=== PATIENT | male | born 1965 | race Caucasian/White ===

== ENCOUNTER 2018-05-18 21:57 | Outpatient (REF) | payer OTHER, SELFPAY ==
[2018-05-18 22:38] LABS: Cholesterol 205 mg/dL (50-200); HDL Cholesterol 40 mg/dL (40-60); LDL CHOLESTEROL 153 mg/dL (<100); Triglyceride 79 mg/dL (30-150)
[2018-05-18 22:39] LABS: Hemoglobin A1C 5.9 % (4.5-6.2)
== END 2018-05-18 22:17 ==
LOC: NCHCN 21:57
PROVIDERS: PCP Internal Medicine; Visit Provider Nurse Practitioner Family
DX: Z13.220 Encounter for screening for lipoid disorders (principal); Z13.1 Encounter for screening for diabetes mellitus
CPT/HCPCS: 80061; 83721; 83036

== ENCOUNTER 2018-11-14 15:59 | Outpatient (REF) | payer OTHER, SELFPAY ==
[2018-11-14 22:07] LABS: Anion Gap 7.7 mmol/L (3-11); BUN 14 mg/dL (7-18); CO2 28.3 mmol/L (21.0-32.0); CREATININE 1.17 mg/dL (0.70-1.30); Calcium 8.5 mg/dL (8.5-10.1); Chloride 105 mmol/L (98-107); Glucose 100 mg/dL (70-100); Potassium 4.4 mmol/L (3.5-5.1); Sodium 141 mmol/L (136-145)
== END 2018-11-14 16:19 ==
LOC: NCHCN 15:59
PROVIDERS: PCP Internal Medicine; Visit Provider Nurse Practitioner Family
DX: I10 Essential (primary) hypertension (principal)
CPT/HCPCS: 80048

== ENCOUNTER 2019-12-16 16:52 | Outpatient (REF) | payer MEDICARE, SELFPAY ==
[2019-12-16 22:22] LABS: HCT 42.6 % (40.0-50.0); HGB 14.3 g/dL (13.5-17.5); Mean Corp. HGB Concentration 33.6 g/dL (32.0-36.0); Mean Corpuscular Hemoglobin 30.1 pg (27.0-33.0); Mean Corpuscular Volume 89.7 fL (80-95); Mean Platelet Volume 10.9 fL (8.0-11.0); Platelet Count 284 x1000/uL (130-400); RBC 4.75 m/cumm (4.50-6.00); RBC Distribution Width 13.8 % (11.8-14.1); White Blood Cell Count 10.26 k/cumm (4.4-10.8)
[2019-12-16 22:31] LABS: ALT 56 U/L (16-63); AST 26 U/L (15-37); Albumin 3.8 g/dL (3.4-5.0); Alkaline Phosphatase 105 U/L (46-116); Anion Gap 5.9 mmol/L (3-11); BUN 11 mg/dL (7-18); CO2 32.1 mmol/L (21.0-32.0); CREATININE 1.31 mg/dL (0.70-1.30); Calcium 8.8 mg/dL (8.5-10.1); Chloride 103 mmol/L (98-107); Glucose 103 mg/dL (74-106); Potassium 3.9 mmol/L (3.5-5.1); Sodium 141 mmol/L (136-145)
[2019-12-16 22:34] LABS: Hemoglobin A1C 6.2 % (3.8-5.6)
[2019-12-17 10:57] LABS: NT-proBNP 937 pg/mL (<300)
[2019-12-17 13:46] LABS: Calculated LDL 146 mg/dL (<100); Cholesterol 227 mg/dL (<200); HDL Cholesterol 37 mg/dL (40-60); TSH (W/Ref FT4) 1.33 uIU/mL (0.36-3.74); Triglyceride 220 mg/dL (<150)
[2019-12-18 11:39] LABS: PSA, Screening 0.9 ng/mL (0.0-3.5)
== END 2019-12-16 17:12 ==
LOC: NCHCN 16:52
PROVIDERS: Family Medicine; PCP Internal Medicine; Visit Provider Nurse Practitioner Family
DX: R73.03 Prediabetes (principal); R06.02 Shortness of breath; I10 Essential (primary) hypertension; E78.5 Hyperlipidemia, unspecified; I48.91 Unspecified atrial fibrillation; Z79.01 Long term (current) use of anticoagulants; I42.2 Other hypertrophic cardiomyopathy; R35.1 Nocturia; Z12.5 Encounter for screening for malignant neoplasm of prostate; R60.0 Localized edema
CPT/HCPCS: 80053; 80061; 84153; 85027; 83036; 83880; 84443

== ENCOUNTER 2020-01-07 11:38 | Outpatient (REF) | payer MEDICARE, SELFPAY ==
[2020-01-07 20:32] LABS: Anion Gap 6.9 mmol/L (3-11); BUN 12 mg/dL (7-18); CO2 31.1 mmol/L (21.0-32.0); CREATININE 1.25 mg/dL (0.70-1.30); Chloride 103 mmol/L (98-107); Estimated GFR 59.75 (mL/min/1.73m2); Glucose 133 mg/dL (74-106); Potassium 3.5 mmol/L (3.5-5.1); Sodium 141 mmol/L (136-145)
[2020-01-07 20:44] LABS: Calcium 8.7 mg/dL (8.5-10.1)
== END 2020-01-07 11:58 ==
LOC: NCHCN 11:38
PROVIDERS: PCP Internal Medicine; Visit Provider Nurse Practitioner Family
DX: I10 Essential (primary) hypertension (principal)
CPT/HCPCS: 80048

== ENCOUNTER 2020-04-20 08:50 | Outpatient (REF) | payer MEDICARE, SELFPAY ==
[2020-04-22 10:05] LABS: HIV-1/2 Ag & Ab Screen Negative (Negative)
[2020-04-22 10:55] LABS: Hepatitis C Ab w Rflx HCV PCR Negative (Negative)
== END 2020-04-20 09:10 ==
LOC: NCHCN 08:50
PROVIDERS: PCP Internal Medicine; Visit Provider Nurse Practitioner Family
DX: Z11.4 Encounter for screening for human immunodeficiency virus [HIV] (principal); Z11.59 Encounter for screening for other viral diseases
CPT/HCPCS: 86803; 87389

== ENCOUNTER 2020-10-19 08:36 | Outpatient (REF) | payer MEDICARE, SELFPAY ==
[2020-10-19 13:45] LABS: ALT 46 U/L (16-63); AST 21 U/L (15-37); Albumin 3.8 g/dL (3.4-5.0); Alkaline Phosphatase 114 U/L (46-116); Anion Gap 7.9 mmol/L (3-11); BUN 14 mg/dL (7-18); CO2 31.1 mmol/L (21.0-32.0); CREATININE 1.2 mg/dL (0.70-1.30); Calcium 8.7 mg/dL (8.5-10.1); Calculated LDL 143 mg/dL (<100); Chloride 104 mmol/L (98-107); Cholesterol 203 mg/dL (<200); Glucose 133 mg/dL (74-106); HDL Cholesterol 41 mg/dL (40-60); Potassium 3.7 mmol/L (3.5-5.1); Sodium 143 mmol/L (136-145); Total Protein 7.1 g/dL (6.4-8.2); Triglyceride 96 mg/dL (<150)
== END 2020-10-19 08:37 | disposition home or self-care (01) ==
LOC: NCHCN 08:36
PROVIDERS: PCP Internal Medicine; Visit Provider Nurse Practitioner Family
DX: E78.5 Hyperlipidemia, unspecified (principal); I10 Essential (primary) hypertension
CPT/HCPCS: 80053; 80061

== ENCOUNTER 2021-01-07 10:50 | Outpatient (REF) | payer MEDICARE, SELFPAY ==
[2021-01-07 13:00] LABS: HGB 13.7 g/dL (13.5-17.5); MCH 29.3 pg (27.0-33.0); MCHC 32.6 % (32.0-36.0); MCV 89.9 fL (80-95); MPV 11.1 fL (8.0-11.0); Platelet Count 267 10^3/uL (130-400); RBC 4.67 10^6/uL (4.36-5.78); RDW-SD 42.3 fL; WBC 10.59 10^3/uL (4.4-10.8)
[2021-01-07 13:05] LABS: Anion Gap 9.8 mmol/L (3-11); BUN 14 mg/dL (7-18); CO2 28.2 mmol/L (21.0-32.0); CREATININE 1.1 mg/dL (0.70-1.30); Calcium 8.7 mg/dL (8.5-10.1); Chloride 106 mmol/L (98-107); Glucose 110 mg/dL (74-106); Sodium 144 mmol/L (136-145)
== END 2021-01-07 10:51 | disposition home or self-care (01) ==
LOC: NCHCN 10:50
PROVIDERS: PCP Internal Medicine; Visit Provider Nurse Practitioner Family
DX: I10 Essential (primary) hypertension (principal); R74.8 Abnormal levels of other serum enzymes; K92.1 Melena
CPT/HCPCS: 80048; 85027

== ENCOUNTER 2021-02-15 09:30 | Outpatient (REF) | payer MEDICARE, SELFPAY ==
[2021-02-15 15:01] LABS: Anion Gap 11.1 mmol/L (3-11); BUN 13 mg/dL (7-18); CO2 26.9 mmol/L (21.0-32.0); CREATININE 1.3 mg/dL (0.70-1.30); Calcium 8.2 mg/dL (8.5-10.1); Chloride 104 mmol/L (98-107); Glucose 212 mg/dL (74-106); Potassium 3.5 mmol/L (3.5-5.1); Sodium 142 mmol/L (136-145)
[2021-02-16 13:46] LABS: Albumin 3.6 g/dL (3.4-5.0)
== END 2021-02-15 09:31 | disposition home or self-care (01) ==
LOC: NCHCN 09:30
PROVIDERS: PCP Internal Medicine; Visit Provider Nurse Practitioner Family
DX: I10 Essential (primary) hypertension (principal); E83.51 Hypocalcemia
CPT/HCPCS: 80048; 82040

== ENCOUNTER 2021-04-06 17:50 | Outpatient (REF) | payer MEDICARE, SELFPAY ==
[2021-04-06 21:26] LABS: Anion Gap 9.1 mmol/L (3-11); BUN 13 mg/dL (7-18); CO2 28.9 mmol/L (21.0-32.0); CREATININE 1.1 mg/dL (0.70-1.30); Calcium 8.7 mg/dL (8.5-10.1); Chloride 105 mmol/L (98-107); Glucose 76 mg/dL (74-106); Potassium 4.4 mmol/L (3.5-5.1); Sodium 143 mmol/L (136-145)
== END 2021-04-06 17:51 | disposition home or self-care (01) ==
LOC: NCHCN 17:50
PROVIDERS: PCP Internal Medicine; Visit Provider Nurse Practitioner Family
DX: I10 Essential (primary) hypertension (principal)
CPT/HCPCS: 80048

== ENCOUNTER 2021-04-20 08:26 | Outpatient (REF) | payer MEDICARE, SELFPAY ==
[2021-04-20 15:16] LABS: Anion Gap 10.1 mmol/L (3-11); BUN 15 mg/dL (7-18); CO2 28.9 mmol/L (21.0-32.0); CREATININE 1.4 mg/dL (0.70-1.30); Calcium 8.8 mg/dL (8.5-10.1); Chloride 103 mmol/L (98-107); Estimated GFR 52.05 (mL/min/1.73m2); Glucose 88 mg/dL (74-106); Potassium 3.6 mmol/L (3.5-5.1); Sodium 142 mmol/L (136-145)
== END 2021-04-20 08:27 | disposition home or self-care (01) ==
LOC: NCHCN 08:26
PROVIDERS: PCP Internal Medicine; Referring Provider Nurse Practitioner Family; Visit Provider Nurse Practitioner Family
DX: I10 Essential (primary) hypertension (principal)
CPT/HCPCS: 80048

== ENCOUNTER 2021-05-17 08:47 | Outpatient (REF) | payer MEDICARE, SELFPAY ==
[2021-05-17 15:19] LABS: Anion Gap 8.5 mmol/L (3-11); BUN 16 mg/dL (7-18); CO2 31.5 mmol/L (21.0-32.0); CREATININE 1.3 mg/dL (0.70-1.30); Calcium 8.9 mg/dL (8.5-10.1); Chloride 103 mmol/L (98-107); Glucose 108 mg/dL (74-106); Potassium 3.7 mmol/L (3.5-5.1); Sodium 143 mmol/L (136-145)
== END 2021-05-17 08:48 | disposition home or self-care (01) ==
LOC: NCHCN 08:47
PROVIDERS: PCP Internal Medicine; Visit Provider Nurse Practitioner Family
DX: I10 Essential (primary) hypertension (principal)
CPT/HCPCS: 80048

== ENCOUNTER 2022-02-28 14:45 | Outpatient (REF) | payer MEDICARE, SELFPAY ==
[2022-02-28 15:09] LABS: ALT 36 U/L (16-63); AST 26 U/L (15-37); Albumin 3.6 g/dL (3.4-5.0); Alkaline Phosphatase 80 U/L (46-116); Anion Gap 9.6 mmol/L (3-11); BUN 23 mg/dL (7-18); Bilirubin, Total 1.2 mg/dL (0.2-1.0); CO2 29.4 mmol/L (21.0-32.0); CREATININE 1.4 mg/dL (0.70-1.30); Calculated LDL 147 mg/dL (<100); Chloride 103 mmol/L (98-107); Cholesterol 204 mg/dL (<200); Estimated GFR 51.87 (mL/min/1.73m2); Glucose 108 mg/dL (74-106); HDL Cholesterol 41 mg/dL (40-60); Potassium 3.6 mmol/L (3.5-5.1); Sodium 142 mmol/L (136-145); Total Protein 6.9 g/dL (6.4-8.2); Triglyceride 82 mg/dL (<150)
== END 2022-02-28 14:46 | disposition home or self-care (01) ==
LOC: NCHCN 14:45
PROVIDERS: PCP Internal Medicine; Visit Provider Nurse Practitioner Family
DX: I10 Essential (primary) hypertension (principal); E78.5 Hyperlipidemia, unspecified
CPT/HCPCS: 80053; 80061

== ENCOUNTER 2022-04-04 18:13 | Outpatient (REF) | payer MEDICARE, SELFPAY ==
[2022-04-04 17:32] LABS: HCT 42.5 % (40.0-50.0); MCH 30.1 pg (27.0-33.0); MCHC 32.9 % (32.0-36.0); MCV 91 fL (80-95); MPV 11.4 fL (8.0-11.0); Platelet Count 258 10^3/uL (130-400); RBC 4.65 10^6/uL (4.36-5.78); RDW 13.1 % (11.8-14.1); RDW-SD 43.4 fL; WBC 10.74 10^3/uL (4.4-10.8)
[2022-04-04 18:15] LABS: ALT 31 U/L (16-63); AST 22 U/L (15-37); Albumin 3.4 g/dL (3.4-5.0); Alkaline Phosphatase 81 U/L (46-116); Anion Gap 9.9 mmol/L (3-11); BUN 16 mg/dL (7-18); Bilirubin, Total 1.3 mg/dL (0.2-1.0); CO2 31.1 mmol/L (21.0-32.0); CREATININE 1.3 mg/dL (0.70-1.30); Calcium 8.6 mg/dL (8.5-10.1); Chloride 103 mmol/L (98-107); Estimated GFR 63.28 (mL/min/1.73m2); Folate 13.4 ng/mL (8.6-20.0); Glucose 95 mg/dL (74-106); Potassium 3.5 mmol/L (3.5-5.1); Sodium 144 mmol/L (136-145); TSH (W/Ref FT4) 1.58 uIU/mL (0.36-3.74); Total Protein 6.9 g/dL (6.4-8.2); Vitamin B12 420 pg/mL (193-986)
== END 2022-04-04 18:14 | disposition home or self-care (01) ==
LOC: NCHCN 18:13
PROVIDERS: PCP Internal Medicine; Visit Provider Nurse Practitioner Family
DX: I10 Essential (primary) hypertension (principal); G62.9 Polyneuropathy, unspecified
CPT/HCPCS: 80053; 85027; 82607; 82746; 84443

== ENCOUNTER 2022-06-13 13:50 | Outpatient (REF) | payer MEDICARE, SELFPAY ==
[2022-06-13 15:26] LABS: Anion Gap 6.8 mmol/L (3-11); BUN 20 mg/dL (7-18); CO2 32.2 mmol/L (21.0-32.0); CREATININE 1.4 mg/dL (0.70-1.30); Chloride 100 mmol/L (98-107); Glucose 181 mg/dL (74-106); Potassium 3.1 mmol/L (3.5-5.1); Sodium 139 mmol/L (136-145)
== END 2022-06-13 13:51 | disposition home or self-care (01) ==
LOC: NCHCN 13:50
PROVIDERS: PCP Internal Medicine; Visit Provider Nurse Practitioner Family
DX: I10 Essential (primary) hypertension (principal)
CPT/HCPCS: 80048

== ENCOUNTER 2022-06-20 15:49 | Outpatient (REF) | payer MEDICARE, SELFPAY ==
[2022-06-20 15:15] LABS: Anion Gap 8.8 mmol/L (3-11); BUN 22 mg/dL (7-18); CO2 30.2 mmol/L (21.0-32.0); CREATININE 1.4 mg/dL (0.70-1.30); Calcium 9.1 mg/dL (8.5-10.1); Chloride 102 mmol/L (98-107); Glucose 176 mg/dL (74-106); Potassium 3.4 mmol/L (3.5-5.1); Sodium 141 mmol/L (136-145)
== END 2022-06-20 15:50 | disposition home or self-care (01) ==
LOC: NCHCN 15:49
PROVIDERS: PCP Internal Medicine; Visit Provider Nurse Practitioner Family
DX: E87.6 Hypokalemia (principal)
CPT/HCPCS: 80048

== ENCOUNTER 2023-03-22 08:27 | Outpatient (REF) | payer MEDICARE, SELFPAY ==
--- OUTSIDE RECORDS SUMMARY | 2023-03-22 08:30 | XMS_ITS | CCD ---
Author Name Unknown Address [address] [place] [id number] Organization Unknown Address [address] [place], [place] [id number] Care Team Providers Care Inspecting Machine Adjuster Name Role Phone KATY BEAR Attending Physician [phone] Vital Signs Unknown or Not Available. Allergies Allergy Code Allergy Type Reaction Status No Known Drug Allergies 0 No known drug allergies Active Procedures Unknown or Not Available. History of Immunizations Immunization Code Date Influenza, seasonal, injectable, preservative fr ee 140 06/05/2014 Problems Problem Code Start Date Resolved Date Status ATRIAL FIBRILLATION 59274 Activ e Results Unknown or Not Available. Active Medications Unknown or Not Available. Medications Administered During Visit Unknown or Not Available. Encounters Encounter Diagnosis Diagnosis Code Start Date Restless legs [id number] 11/29/2022 Social History Smoking Status Code Start Date End Date Never smoker [id number] Patient Decision Aids Unknown or Not Available. Discharge Instructions You were admitted to [facility] on 11/29/2022 07:44 with a principal diagnosis of Restless legs syndrome You were discharged from [facility] on 11/29/2022 07:44 Should you have any questions prior to discharge, please contact a member of your healthcare team. If you have left the hospital and have any questions, please contact your primary care physician. Chief Complaint and Reason For Visit Unknown or Not Available. Function Status Unknown or Not Available. Plan of Care Unknown or Not Available. Referral/Transition of Care Unknown or Not Available.
--- OUTSIDE RECORDS SUMMARY | 2023-03-22 08:30 | XMS_ITS | CCD ---
Author Name Unknown Address [address] [place] [address] [phone] Organization Unknown Address [address] [place], [place] [id number] Care Team Providers Care Environmental Services Associate Name Role Phone KATY BEAR Attending Physician [phone] KATY BEAR Rounding (Secondary) Physician [phone] Vital Signs Unknown or Not Available. Allergies Allergy Code Allergy Type Reaction Status No Known Drug Allergies 0 No known drug allergies Active Procedures Unknown or Not Available. History of Immunizations Immunization Code Date Influenza, seasonal, injectable, preservative fr ee 140 06/05/2014 Problems Problem Code Start Date Resolved Date Status ATRIAL FIBRILLATION 21024 Activ e Results COMPREHENSIVE METABOLIC PANE L (CMP) - Collect Date/Time: 08/02/2022 11:15 Test Name Code Test Result Test Units Test Ref Rang e GLUCOSE 2345-7 90 mg/dL L=70 H=116 BUN 3094-0 16 mg/dL L=6 H=25 CREATININE 2160-0 1.29 mg/dL L=0.67 H=1.17 SODIUM SERUM 2951-2 140 mmol/L L=136 H=145 POTASSIUM SERUM 2823-3 3.5 mmol/L L=3.4 H=5 .2 CHLORIDE SERUM 2075-0 101 mmol/L L=96 H=110 CARBON DIOXIDE (CO2) 2028-9 31 mmol/L L=22 H=34 ANION GAP 61661-4 8.2 mmol/L CALCIUM SERUM 83595-6 8.7 mg/dL L=8.2 H=10. 2 BILIRUBIN TOTAL 1975-2 1.0 mg/dL L=0.0 H=1 .3 ALK. PHOS. 6768-6 84 U/L L=46 H=116 SGOT (AST) 1920-8 26 U/L L=15 H=37 SGPT (ALT) 1742-6 34 U/L L=12 H=78 TOTAL PROTEIN 2885-2 7.1 gm/dL L=6.0 H=8.0 ALBUMIN 1751-7 3.5 gm/dL L=3.4 H=5.0 AGE 57 years eGFR (non-Afr.Amer.) 20663-9 57 mL/min eGFR (Afr-Honduran) 49316-9 69 mL/min FERRITIN - Collect Date/Time : 08/02/2022 11:15 Test Name Code Test Result Test Units Test Ref Rang e FERRITIN 2276-4 150 ng/mL L=8 H=388 TSH THYROID STIMULATING HORM ONE* - Collect Date/Time: 08/02/2022 11:15 Test Name Code Test Result Test Units Test Ref Rang e TSH 3014-8 1.050 uIU/mL L=0.360 H=3.74 0 SED RATE* - Collect Date/George e: 08/02/2022 11:15 Test Name Code Test Result Test Units Test Ref Rang e SED. RATE 4537-7 27 mm/hr L=0 H=20 Active Medications Unknown or Not Available. Medications Administered During Visit Unknown or Not Available. Encounters Encounter Diagnosis Diagnosis Code Start Date Other fatigue [id number] 08/02/2022 Social History Smoking Status Code Start Date End Date Never smoker [id number] Patient Decision Aids Unknown or Not Available. Discharge Instructions You were admitted to [facility] on 08/02/2022 15:25 with a principal diagnosis of Other fatigue You had the following tests done:COMPREHENSIVE METABOLIC PANEL (CMP)FERRITINSED RATE*TSH THYROID STIMULATING HORMONE* You were discharged from [facility] on 08/02/2022 00:00 Should you have any questions prior to [...]
--- OUTSIDE RECORDS SUMMARY | 2023-03-22 08:30 | XMS_ITS | CCD ---
Author Name Unknown Address [address] [place] [address] [id number] Organization Unknown Address [address] [place] [phone] Care Team Providers Care Piggyback Clerk Name Role Phone LEIA VIATLE Attending Physician [phone] Vital Signs Unknown or Not Available. Allergies Allergy Code Allergy Type Reaction Status No Known Drug Allergies 0 No known drug allergies Active Procedures Unknown or Not Available. History of Immunizations Immunization Code Date Influenza, seasonal, injectable, preservative fr ee 140 06/05/2014 Problems Problem Code Start Date Resolved Date Status ATRIAL FIBRILLATION 58733 Activ e Results GLUCOSE TOLERANCE TEST TWO H OUR* - Collect Date/Time: 04/20/2022 07:49 Test Name Code Test Result Test Units Test Ref Rang e Fasting Glucose 3665-7 111 mg/dL L=80 H=11 6 2 hour Glucose 179 mg/dL L=80 H=150 Active Medications Unknown or Not Available. Medications Administered During Visit Unknown or Not Available. Encounters Encounter Diagnosis Diagnosis Code Start Date Polyneuropathy [id number] 04/20/2022 Social History Smoking Status Code Start Date End Date Never smoker [id number] Patient Decision Aids Unknown or Not Available. Discharge Instructions You were admitted to [facility] on 04/20/2022 07:40 with a principal diagnosis of Polyneuropathy, unspecified You had the following tests done:GLUCOSE TOLERANCE TEST TWO HOUR* You were discharged from [facility] on 04/20/2022 07:40 Should you have any questions prior to [...]
[2023-03-22 16:33] LABS: ALT 36 U/L (16-63); AST 25 U/L (15-37); Albumin 3.6 g/dL (3.4-5.0); Alkaline Phosphatase 89 U/L (46-116); Anion Gap 9.6 mmol/L (3-11); BUN 18 mg/dL (7-18); Bilirubin, Total 1.4 mg/dL (0.2-1.0); CO2 30.4 mmol/L (21.0-32.0); CREATININE 1.3 mg/dL (0.70-1.30); Calcium 8.9 mg/dL (8.5-10.1); Calculated LDL 136 mg/dL (<100); Chloride 102 mmol/L (98-107); Cholesterol 196 mg/dL (<200); Estimated GFR 62.89 (mL/min/1.73m2); Glucose 136 mg/dL (74-106); HDL Cholesterol 41 mg/dL (40-60); Potassium 3.5 mmol/L (3.5-5.1); Sodium 142 mmol/L (136-145); Total Protein 7.1 g/dL (6.4-8.2); Triglyceride 97 mg/dL (<150)
== END 2023-03-22 08:28 | disposition home or self-care (01) ==
LOC: NCHCN 08:27
PROVIDERS: PCP Internal Medicine; Visit Provider Registered Nurse
DX: I10 Essential (primary) hypertension (principal); E78.5 Hyperlipidemia, unspecified; R73.03 Prediabetes; E66.9 Obesity, unspecified
CPT/HCPCS: 80053; 80061

== ENCOUNTER 2023-10-26 13:05 | Outpatient (REF) | payer MEDICARE, SELFPAY ==
[2023-10-26 14:57] LABS: Anion Gap 8.2 mmol/L (3-11); BUN 18 mg/dL (7-18); CO2 31.8 mmol/L (21.0-32.0); CREATININE 1.3 mg/dL (0.70-1.30); Calcium 9.1 mg/dL (8.5-10.1); Chloride 103 mmol/L (98-107); Estimated GFR 62.89 (mL/min/1.73m2); Glucose 245 mg/dL (74-106); Potassium 3.1 mmol/L (3.5-5.1); Sodium 143 mmol/L (136-145)
[2023-10-26 15:09] LABS: Hemoglobin A1C 6.7 % (<5.7)
== END 2023-10-26 13:06 | disposition home or self-care (01) ==
LOC: NCHCN 13:05
PROVIDERS: PCP Internal Medicine; Visit Provider Family Medicine
DX: R73.03 Prediabetes (principal); I10 Essential (primary) hypertension
CPT/HCPCS: 80048; 83036

== ENCOUNTER 2023-11-01 08:52 | Outpatient (REF) | payer MEDICARE, SELFPAY ==
[2023-11-01 14:48] LABS: Anion Gap 2.5 mmol/L (3-11); BUN 15 mg/dL (7-18); CO2 33.5 mmol/L (21.0-32.0); CREATININE 1.3 mg/dL (0.70-1.30); Calcium 8.7 mg/dL (8.5-10.1); Chloride 104 mmol/L (98-107); Estimated GFR 62.89 (mL/min/1.73m2); Glucose 184 mg/dL (74-106); Potassium 3.7 mmol/L (3.5-5.1); Sodium 140 mmol/L (136-145)
[2023-11-01 14:55] LABS: Hemoglobin A1C 6.7 % (<5.7)
== END 2023-11-01 08:53 | disposition home or self-care (01) ==
LOC: NCHCN 08:52
PROVIDERS: PCP Internal Medicine; Visit Provider Family Medicine
DX: R73.03 Prediabetes (principal)
CPT/HCPCS: 80048; 83036

== ENCOUNTER 2023-12-08 15:19 | Outpatient (REF) | payer MEDICARE, SELFPAY ==
[2023-12-08 14:37] LABS: Anion Gap 7.9 mmol/L (3-11); BUN 15 mg/dL (7-18); CO2 32.1 mmol/L (21.0-32.0); CREATININE 1.3 mg/dL (0.70-1.30); Calcium 9.2 mg/dL (8.5-10.1); Chloride 102 mmol/L (98-107); Estimated GFR 62.89 (mL/min/1.73m2); Glucose 193 mg/dL (74-106); Potassium 3.5 mmol/L (3.5-5.1); Sodium 142 mmol/L (136-145)
== END 2023-12-08 15:20 | disposition home or self-care (01) ==
LOC: NCHCN 15:19
PROVIDERS: PCP Internal Medicine; Visit Provider Family Medicine
DX: E87.6 Hypokalemia (principal)
CPT/HCPCS: 80048

== ENCOUNTER 2024-05-15 15:01 | Outpatient (REF) | payer MEDICARE, SELFPAY ==
[2024-05-15 15:25] LABS: Hemoglobin A1C 6.5 % (<5.7)
[2024-05-15 15:33] LABS: ALT 24 U/L (16-63); AST 25 U/L (15-37); Albumin 3.6 g/dL (3.4-5.0); Alkaline Phosphatase 108 U/L (46-116); BUN 13 mg/dL (7-18); Bilirubin, Total 1.66 mg/dL (0.2-1.0); CREATININE 1.4 mg/dL (0.70-1.30); Calcium 9.5 mg/dL (8.5-10.1); Calculated LDL 149 mg/dL (<100); Chloride 103 mmol/L (98-107); Cholesterol 210 mg/dL (<200); Estimated GFR 57.18 (mL/min/1.73m2); Glucose 131 mg/dL (74-106); HDL Cholesterol 43 mg/dL (40-60); Potassium 3.8 mmol/L (3.5-5.1); Sodium 144 mmol/L (136-145); Total Protein 7.5 g/dL (6.4-8.2); Triglyceride 92 mg/dL (<150)
== END 2024-05-15 15:02 | disposition home or self-care (01) ==
LOC: NCHCN 15:01
PROVIDERS: PCP Internal Medicine; Visit Provider Family Medicine
DX: E78.5 Hyperlipidemia, unspecified (principal); E11.9 Type 2 diabetes mellitus without complications
CPT/HCPCS: 80053; 80061; 83036

== ENCOUNTER 2024-05-22 13:34 | Outpatient (REF) | payer MEDICARE, SELFPAY ==
[2024-05-22 18:09] LABS: COMMENT (LAB VIEW ONLY) 124.32 mg/dL; Microalb ug/mg Crea 7.5 ug/mg Cr
== END 2024-05-22 13:35 | disposition home or self-care (01) ==
LOC: NCHCN 13:34
PROVIDERS: PCP Internal Medicine; Visit Provider Family Medicine
DX: E11.9 Type 2 diabetes mellitus without complications (principal)
CPT/HCPCS: 82043; 82570